=== PATIENT | female | born 1975 | race Caucasian/White ===

== ENCOUNTER 2017-03-30 15:31 | Emergency (ER) | payer MEDICAID, OTHER ==
[~2017-03-30] VITALS: Wt 47.7 kg
[2017-03-30] MEDS ORDERED: ONDANSETRON (ODT) 4 MG TAB ODT STA (18:43)
--- NOTE | 2017-03-30 18:43 | ERD ---
ER Documentation Chief Complaint Chief Complaint HEADACHE, NAUSEA, VOMITING, ONSET LAST NIGHT HPI sudden onset today of n/v/d, Patient reports tactile fever and cold chills, states she has been able to tolerate fluids but does not have an appetite, denies any anybody is sick at her house, patient denies possibility of contaminated food. Has not traveled outside the [place], denies there is any blood in her vomit, or blood in her stool. Patient reports epigastric pain. No history of gastroesophageal reflux disease. ROS All systems reviewed and are negative except as per history of present illness. Allergies Allergies: Coded Allergies: No Known Allergy (Unverified , 03/30/17) PMhx/Soc Medical and Surgical Hx: pt denies Medical Hx, pt denies Surgical Hx Hx Alcohol Use: No Hx Substance Use: No Hx Tobacco Use: No Smoking Status: Never smoker Physical Exam Vitals Vital Signs Date Time Temp Pulse Resp B/P Pulse Ox O2 Delivery O2 Flow Rate FiO2 03/30/17 15:36 97.8 75 17 131/79 99 Vitals stable, triage notes reviewed Physical Exam Const: Well-nourished, well-hydrated, well-appearing 41-year-old female in no acute distress ENT: Normal External Ears, Nose and Mouth, Mucous membranes moist. Resp: Clear to auscultation bilaterally, No respiratory distress Abd: Soft,Nondistended, non-tympanic to percussion, palpable epigastric tenderness, negative Cowan sign, negative CVA tenderness Neur: Awake and alert Psych: Normal Mood and Affect Results 24 hrs Current Medications Medications (Trade) Dose Ordered Sig/Mora Route PRN Reason Start Time Stop Time Status Last Admin Dose Admin Ondansetron HCl (Zofran Odt) 4 mg ONCE STAT ODT 03/30/17 18:43 03/30/17 18:44 DC 03/30/17 19:32 Procedures/MDM This 41-year-old female presents to emergency department for evaluation of acute onset nausea vomiting and diarrhea, denies possibility of contaminated food, or sick contacts, patient is well-appearing, in no acute distress, palpable epigastric tenderness. Plan to treat patient with Zofran, and a p.o. challenge. Patient reassessed after interventions complete, tolerated 120 cc without vomiting, plan to discharge patient home with Zofran, clear liquid diet advance as tolerated, return to emergency department if symptoms fail to improve as anticipated over the next several days, follow-up with primary care physician. Patient is stable with no new complaints during ER course, clinically there is no current evidence to suggest meningitis, sepsis, acute abdomen, acute coronary syndromes, cholecystitis, cholelithiasis, pancreatitis, pyelonephritis or any other emergent condition appearing to require further evaluation or hospitalization. I feel the patient is stable for discharge at this time. I have discussed results, examination findings, the treatment plan with the patient and family present prior to discharge. Indications for emergent reevaluation, side effects of medication were also discussed. All questions were answered. Patient verbalizes understanding and agrees with plan of care. Departure Diagnosis: Primary Impression: Nausea and vomiting Vomiting type: unspecified Vomiting Intractability: non-intractable Qualified Code: R11.2 - Non-intractable vomiting with nausea, unspecified vomiting type Additional Impression: Diarrhea in adult patient Condition: Good Patient Instructions: Nausea and Vomiting-Adult, Self-Care for Vomiting and Diarrhea Comments Thank you for for coming to [facility] for your care today. Please ask your nurse or provider if you have questions about your care today and do not leave until all your questions have been answered. Please use any medications given as directed and follow-up with your doctor (or the doctor you were referred to) in the next 2-3 days. If you do not have a primary care doctor you may follow up at the [facility] (listed below). You may also use motrin and tylenol as needed for fever and/or pain unless instructed otherwise by your provider or nurse. Indications for more urgent follow-up have been discussed, but you may return to the Emergency Department at ANY time for any worrisome or worsening symptoms. If you have abdominal pain, please know that no test or exam you received is perfect and you should follow up within 8 hours for continued pain. If you had any imaging studies today, such as an X-Ray or CT Scan, these studies will be reviewed later by a radiologist. You will be called if there are important findings that were not identified today, so make sure the contact information you provided at registration is correct. If you received any narcotic pain control medicine today, such as Vicodin, Morphine or Dilaudid, your coordination and judgment may be affected for a number of hours. Please do not drive or operate heavy machinery, and you may want someone to assist you at home. If you were given a prescription for narcotic medication, be aware that it is very addictive- use sparingly and only if necessary. SHANE TAO Mar 30, 2017 18:43
[2017-03-30] MEDS ORDERED: ONDA4TAB14 PO (20:00)
[2017-03-30 20:10] VITALS: BP 117/79; PULSE 71; RESP 18; TEMP 98.3
== END 2017-03-30 20:10 | disposition home or self-care (01) ==
LOC: FTE 15:31
DX: R11.2 Nausea with vomiting, unspecified (principal); R19.7 Diarrhea, unspecified
CPT/HCPCS: Z7502; Z7610; 99283